=== PATIENT | male | born 1995 | race Caucasian/White ===

== ENCOUNTER 2020-06-21 11:52 | Outpatient (REF) | payer OTHER, SELFPAY ==
[2020-06-21 14:33] LABS: SARS COV2 PCR INHOUSE NEGATIVE (Negative)
== END 2020-06-21 11:53 | disposition home or self-care (01) ==
LOC: HO.LAB 11:52
PROVIDERS: Visit Provider Internal Medicine
DX: Z20.822 Contact with and (suspected) exposure to COVID-19 (principal)
CPT/HCPCS: C9803; U0003

== ENCOUNTER 2022-05-27 10:57 | Emergency (ER) | payer MEDICAID, SELFPAY ==
[2022-05-27 11:18] VITALS: BP 130/78; PULSE 100; RESP 20; TEMP 36.7; O2SAT 100; BMI 22.4
--- NOTE | 2022-05-27 11:19 | ED.EYEPROB ---
HPI - Eye Problem General Chief complaint: Eye Problems <TATA Banda - Last Filed: 05/27/22 11:27> Stated complaint: R eye vision loss <TATA Banda - Last Filed: 05/27/22 11:27> Time Seen by Provider: 05/27/22 12:37 <TATA Banda - Last Filed: 05/27/22 11:27> Source: patient, RN notes reviewed and old records reviewed <Margareth Irving NP - Last Filed: 05/27/22 17:52> Mode of arrival: ambulatory <Margareth Irving NP - Last Filed: 05/27/22 17:52> Limitations: no limitations <Margareth Irving NP - Last Filed: 05/27/22 17:52> History of Present Illness HPI Narrative: This is a 26-year-old male, with no known significant past medical history, who presents to the emergency department with complaints of right eye vision blurriness and photophobia x2 weeks. He states that he woke up with these symptoms 2 weeks ago and admits that his symptoms have been progressively worsening. He denies any eye itchiness, eye pain, discharge, drainage, crusting, or any foreign body into his right eye. His left eye is unaffected. Patient reports over the last year he has had urinary frequency and increased thirst, however denies ever being told that he has diabetes. He states that he has not seen a doctor in ?many years . He reports that he has a cousin has a history of diabetes, however denies any other family medical history of diabetes. <Margareth Irving NP - Last Filed: 05/27/22 17:52> chief complaint: vision change <Margareth Irving NP - Last Filed: 05/27/22 17:52> Onset (ago): week(s) <Margareth Irving NP - Last Filed: 05/27/22 17:52> Onset description: sudden <Margareth Irving NP - Last Filed: 05/27/22 17:52> Duration: progressively worsening <MODE Thomas Last Filed: 05/27/22 17:52> Location: right eye <Margareth Irving NP - Last Filed: 05/27/22 17:52> Eye Symptoms: decreased vision, blurry vision and photophobia <Margareth Irving NP - Last Filed: 05/27/22 17:52> Mechanism: none <Margareth Irving NP - Last Filed: 05/27/22 17:52> Associated symptoms: none <Margareth Irving NP - Last Filed: 05/27/22 17:52> Treatments Prior to Arrival: none <Margareth Irving NP - Last Filed: 05/27/22 17:52> Related Data Home medications: Previous Rx's Medication Instructions Recorded blood sugar diagnostic (FreeStyle #100 ea 05/27/22 Lite Strips) blood-glucose meter (FreeStyle #1 ea 05/27/22 Lite Meter kit) glipizide 5 mg tablet 5 mg PO BID #120 tabs 05/27/22 lancets 28 gauge (FreeStyle #100 ea 05/27/22 Lancets) <TATA Banda - Last Filed: 05/27/22 11:27> Allergies/adverse reactions: Allergies Allergy/AdvReac Type Severity Reaction Status Date / Time No Known Allergies Allergy Verified 05/27/22 11:18 <TATA Banda - Last Filed: 05/27/22 11:27> Review of Systems Review of Systems: Yes all other systems are reviewed and are negative <Margareth Irving NP - Last Filed: 05/27/22 17:52> Constitutional: Constitutional: Reports no additional constitutional complaints, Denies body ache(s), Denies chills, Denies fever(s), Denies headache(s) and Denies weakness <Margareth Irving NP - Last Filed: 05/27/22 17:52> Eyes: Eyes: Reports blurry vision, Reports change in vision, Denies eye discharge, Denies eye pain and Reports photophobia <Margareth Irving NP - Last Filed: 05/27/22 17:52> ENT: Reports system reviewed and no additional complaints, except as documented, Denies dizziness, Denies headache(s), Denies nasal congestion, Denies nasal discharge and Denies neck pain <Margareth Irving VANSTONE MACHINE OPERATOR - Last Filed: 05/27/22 17:52> Cardiovascular: Cardiovascular: Reports no additional cardiovascular complaints, Denies chest pain, Denies leg edema and Denies dyspnea <Margareth Irving VANSTONE MACHINE OPERATOR - Last Filed: 05/27/22 17:52> Respiratory: Respiratory: Reports no additional respiratory complaints, Denies cough and Denies dyspnea <Margareth Irving VANSTONE MACHINE OPERATOR - Last Filed: 05/27/22 17:52> Gastrointestinal: Gastrointestinal: Reports no additional gastrointestinal complaints, Denies abdominal pain, Denies diarrhea, Denies nausea and Denies vomiting <Margareth Irving VANSTONE MACHINE OPERATOR - Last Filed: 05/27/22 17:52> Genitourinary: Genitourinary: Reports as per HPI and Denies urinary incontinence <Margareth Irving VANSTONE MACHINE OPERATOR - Last Filed: 05/27/22 17:52> Musculoskeletal: Musculoskeletal: Reports no additional musculoskeletal complaints, Denies back pain, Denies arthralgias, Denies joint swelling, Denies neck pain, Denies numbness and Denies tingling <Margareth Irving VANSTONE MACHINE OPERATOR - Last Filed: 05/27/22 17:52> Integumentary/Breasts: Skin/Breast: Reports system reviewed and no additional complaints, except as docu and Denies rash <Margareth Irving VANSTONE MACHINE OPERATOR - Last Filed: 05/27/22 17:52> Neurologic: Reports system reviewed and no additional complaints, except as documented, Denies Abnormal speech present, Denies dizziness, Denies headache(s), Denies numbness, Denies tingling and Denies weakness <Margareth Irving VANSTONE MACHINE OPERATOR - Last Filed: 05/27/22 17:52> Endocrine: Endocrine: Reports polydipsia and Reports polyuria <Margareth Irving VANSTONE MACHINE OPERATOR - Last Filed: 05/27/22 17:52> PMFSH Past Medical History Attestation statement: The following information was validated with the patient. <Margareth Irving VANSTONE MACHINE OPERATOR - Last Filed: 05/27/22 17:52> Source: old records reviewed and nursing notes reviewed <Margareth Irving VANSTONE MACHINE OPERATOR - Last Filed: 05/27/22 17:52> Social History Social History: Social History Alcohol intake: never Smoked in Last 30 Days: No Use of substances other than those prescribed or required for medical reasons: No Advance Directives: No Advance Directives Information Provided: No <TATA Banda - Last Filed: 05/27/22 11:27> Physical Exam Vital Signs: Vital Signs: Last Vital Signs Temp 98.4 F 05/27/22 12:49 Pulse 97 05/27/22 12:49 Resp 19 05/27/22 12:49 BP 127/78 05/27/22 12:49 Pulse Ox 99 05/27/22 12:49 O2 Del Method 05/27/22 12:49 BMI result Body Mass Index 22.4 <TATA Banda - Last Filed: 05/27/22 11:27> Vital Signs: Last Vital Signs Temp 98.4 F 05/27/22 12:49 Pulse 97 05/27/22 12:49 Resp 19 05/27/22 12:49 BP 127/78 05/27/22 12:49 Pulse Ox 99 05/27/22 12:49 O2 Del Method 05/27/22 12:49 BMI result Body Mass Index 22.4 <Margareth Irving NP - Last Filed: 05/27/22 17:52> Const: General: cooperative, healthy appearing, comfortable and no acute distress <Margareth Irving NP - Last Filed: 05/27/22 17:52> Orientation/consciousness: patient oriented x3 <Margareth Irving NP - Last Filed: 05/27/22 17:52> Limitations: no limitations <Margareth Irving NP - Last Filed: 05/27/22 17:52> HEENT: Head: Yes normal to inspection <Margareth Irving NP - Last Filed: 05/27/22 17:52> Ears: hearing grossly normal bilaterally <Margareth Irving NP - Last Filed: 05/27/22 17:52> General nose exam: Normal external nose present <Margareth Irving NP - Last Filed: 05/27/22 17:52> Face and sinus: Yes normal facial exam <Margareth Irving VANSTONE MACHINE OPERATOR - Last Filed: 05/27/22 17:52> Mouth: Normal oral and palatal mucosa present <Margareth Irving VANSTONE MACHINE OPERATOR - Last Filed: 05/27/22 17:52> Throat: Yes posterior oropharynx normal <Margareth Irving VANSTONE MACHINE OPERATOR - Last Filed: 05/27/22 17:52> Eyes: Other: Right eye with irregularly circular shaped haziness noted to the cornea, at approximately the 7 o'clock position with some scant fluorescein uptake in the 7 o'clock position, more distal from this region. Intraocular pressure noted to be 20 bilaterally. Visual acuity performed, R eye: unable to perform; Left eye 20/100; Bilateral eyes 20/100 <Margareth Irving VANSTONE MACHINE OPERATOR - Last Filed: 05/27/22 17:52> General: appearance normal, both eyes and all related structures <Margareth Irving VANSTONE MACHINE OPERATOR - Last Filed: 05/27/22 17:52> Visual Dixon: normal visual dixon by confrontation <Margareth Irving VANSTONE MACHINE OPERATOR - Last Filed: 05/27/22 17:52> Alignment and Position: alignment normal <Margareth Irving VANSTONE MACHINE OPERATOR - Last Filed: 05/27/22 17:52> Periorbital: periorbital findings normal <Margareth Irving VANSTONE MACHINE OPERATOR - Last Filed: 05/27/22 17:52> Eyelids: Yes eyelids normal <Margareth Irving VANSTONE MACHINE OPERATOR - Last Filed: 05/27/22 17:52> Conjunctivae: conjunctivae normal <Margareth Irving VANSTONE MACHINE OPERATOR - Last Filed: 05/27/22 17:52> Sclerae: sclerae normal <Margareth Irving VANSTONE MACHINE OPERATOR - Last Filed: 05/27/22 17:52> Pupils: Equal, round and reactive pupils present <Margareth Irving VANSTONE MACHINE OPERATOR - Last Filed: 05/27/22 17:52> EOM: EOMs intact bilaterally <Margareth Irving VANSTONE MACHINE OPERATOR - Last Filed: 05/27/22 17:52> Direct Ophthalmoscopy: normal light reflex and photophobia <Margareth Irving VANSTONE MACHINE OPERATOR - Last Filed: 05/27/22 17:52> Neck: Neck: Yes normal visual inspection <Margareth Irving VANSTONE MACHINE OPERATOR - Last Filed: 05/27/22 17:52> Chest: Chest palpation & inspection: normal inspection of the chest <Margareth Irving VANSTONE MACHINE OPERATOR - Last Filed: 05/27/22 17:52> Resp: Effort & Inspection: normal respiratory effort <Margareth Irving VANSTONE MACHINE OPERATOR - Last Filed: 05/27/22 17:52> Auscultation: clear to auscultation bilaterally <Margareth Irving VANSTONE MACHINE OPERATOR - Last Filed: 05/27/22 17:52> Cardio: Rate: regular rate <Margareth Irving VANSTONE MACHINE OPERATOR - Last Filed: 05/27/22 17:52> Rhythm: regular rhythm <Margareth Irving VANSTONE MACHINE OPERATOR - Last Filed: 05/27/22 17:52> Peripheral pulses: Peripheral pulses 2+ throughout <Margareth Irving VANSTONE MACHINE OPERATOR - Last Filed: 05/27/22 17:52> GI: Inspection: Yes normal to inspection <Margareth Irving VANSTONE MACHINE OPERATOR - Last Filed: 05/27/22 17:52> Palpation (GI): Soft to palpation and nontender <Margareth Irving VANSTONE MACHINE OPERATOR - Last Filed: 05/27/22 17:52> Auscultation: normal bowel sounds <Margareth Irving VANSTONE MACHINE OPERATOR - Last Filed: 05/27/22 17:52> Back/Spine/Pelvis: Thoracic/Lumbar Spine: thoracic and lumbar spine normal to inspection <Margareth Irving VANSTONE MACHINE OPERATOR - Last Filed: 05/27/22 17:52> Skin: General skin exam: no rashes or lesions noted <Margareth Irving VANSTONE MACHINE OPERATOR - Last Filed: 05/27/22 17:52> Neuro: General: patient oriented x3, no focal motor deficits and normal sensation to monofilament <Margareth Irving VANSTONE MACHINE OPERATOR - Last Filed: 05/27/22 17:52> Cranial nerves: Yes Equal, round and reactive pupils present <Margareth Irving VANSTONE MACHINE OPERATOR - Last Filed: 05/27/22 17:52> Cognition (Neuro): normal cognition <Margareth Irving NP - Last Filed: 05/27/22 17:52> Speech: No Abnormal speech present <Margareth Irving NP - Last Filed: 05/27/22 17:52> Gait exam (Neuro): Normal gait present <Margareth Irving NP - Last Filed: 05/27/22 17:52> Motor exam (neuro): 5/5 motor strength present throughout <Margareth Irving NP - Last Filed: 05/27/22 17:52> Extrem: General: Yes normal to inspection <Margareth Irving NP - Last Filed: 05/27/22 17:52> Course Course Course Narrative: RME - 26 yo male with no known medical problems presents to the ER for evaluation of progressive right sided vision changes over the last 1 week. Reports it was intermittent at 1st and how he has constant cloudy vision in the left eye. No associated eye pain, FB sensation, drainage, trauma. He reports polydipsia and polyuria x1 year. Right eye is cloudy, most over the pupil, PERRL. Plan: visual acuity, full eye exam in the ER. POC in triage reading HIGH labs and A1c ordered <TATA Banda - Last Filed: 05/27/22 11:27> RME - 26 yo male with no known medical problems presents to the ER for evaluation of progressive right sided vision changes over the last 2 weeks. Reports it was intermittent at 1st and how he has constant cloudy vision in the left eye. No associated eye pain, FB sensation, drainage, trauma. He reports polydipsia and polyuria x1 year. Right eye is cloudy, most over the pupil, PERRL. Plan: visual acuity, full eye exam in the ER. POC in triage reading HIGH labs and A1c ordered <Margareth Irving NP - Last Filed: 05/27/22 17:52> Reevaluation(s) Reevaluation #1: 1430-BS 525. No evidence of DKA. Will repeat L of IV fluids and insulin dose. Patient does not have primary care doctor. This is a new diagnosis of diabetes. Anticipate admission further management <Margareth Irving NP - Last Filed: 05/27/22 17:52> Reevaluation #2: 0860-blood sugar 328. Patient new diabetic. Patient will need diabetic teaching and follow-up outpatient. Will admit to medicine service for further evaluation <Margareth Irving NP - Last Filed: 05/27/22 17:52> Medications Administered Discontinued Medications Generic Name Dose Route Start Last Admin Trade Name Freq PRN Reason Stop Dose Admin Fluorescein Sodium 1 strip 05/27/22 12:45 05/27/22 13:31 Fluorescein Sodium Strip EYE-RIGHT 05/27/22 12:46 1 strip ONCE ONE Administration Sodium Chloride 1,000 mls @ 999 mls/hr 05/27/22 11:30 05/27/22 13:32 Ns IVCONT 05/27/22 12:30 Infused .Q1H1M CHRISTIN Infusion Sodium Chloride 1,000 mls @ 999 mls/hr 05/27/22 14:35 05/27/22 16:05 Ns IV 05/27/22 15:35 Infused .Q1H1M STA Infusion Insulin Human Regular 6 unit 05/27/22 12:57 05/27/22 13:30 Insulin Regular, Human 100 Unit/Ml 3 Ml Vial 0.1 unit/kg (6 unit) 05/27/22 12:58 6 unit IVPUSH Administration ONCE ONE Insulin Human Regular 6 unit 05/27/22 14:35 05/27/22 14:55 Insulin Regular, Human 100 Unit/Ml 3 Ml Vial 0.1 unit/kg (6 unit) 05/27/22 14:36 6 unit IVPUSH Administration ONCE ONE Tetracaine HCl 1 drop 05/27/22 12:45 05/27/22 13:32 Tetracaine Hcl/Pf 0.5% Oph Kalyani 4 Ml Drops EYE-RIGHT 05/27/22 12:46 1 drop ONCE ONE Administration <TATA Banda - Last Filed: 05/27/22 11:27> Medications Administered Discontinued Medications Generic Name Dose Route Start Last Admin Trade Name Freq PRN Reason Stop Dose Admin Fluorescein Sodium 1 strip 05/27/22 12:45 05/27/22 13:31 Fluorescein Sodium Strip EYE-RIGHT 05/27/22 12:46 1 strip ONCE ONE Administration Sodium Chloride 1,000 mls @ 999 mls/hr 05/27/22 11:30 05/27/22 13:32 Ns IVCONT 05/27/22 12:30 Infused .Q1H1M CHRISTIN Infusion Sodium Chloride 1,000 mls @ 999 mls/hr 05/27/22 14:35 05/27/22 16:05 Ns IV 05/27/22 15:35 Infused .Q1H1M STA Infusion Insulin Human Regular 6 unit 05/27/22 12:57 05/27/22 13:30 Insulin Regular, Human 100 Unit/Ml 3 Ml Vial 0.1 unit/kg (6 unit) 05/27/22 12:58 6 unit IVPUSH Administration ONCE ONE Insulin Human Regular 6 unit 05/27/22 14:35 05/27/22 14:55 Insulin Regular, Human 100 Unit/Ml 3 Ml Vial 0.1 unit/kg (6 unit) 05/27/22 14:36 6 unit IVPUSH Administration ONCE ONE Tetracaine HCl 1 drop 05/27/22 12:45 05/27/22 13:32 Tetracaine Hcl/Pf 0.5% Oph Kalyani 4 Ml Drops EYE-RIGHT 05/27/22 12:46 1 drop ONCE ONE Administration <Margareth Irving NP - Last Filed: 05/27/22 17:52> Medical Decision Making Medical Decision Making MDM Narrative: 26 yo male with no known medical problems presents to the ER for evaluation of progressive right sided vision changes over the last 2 weeks as well as polydipsia and polyurea x 1 year. POC > 600; Exam and lab findings consistent with new diagnosis of diabetes. Eye examination shows no examination of corneal abrasions/lacerations/ulcerations, intraoccular pressures within normal limits at 20; examination findings concerning for diabetic retinopathy secondary to uncontrolled hyperglycemia x 1 year. Patient is hemodynamically stable. Labs, COVID-19 swabs, UA ordered for further evaluation. No evidence of DKA at this time. Will treat patient with 6 units of insulin and IV fluids. <Margareth Irving NP - Last Filed: 05/27/22 17:52> Differential Diagnosis Differential Diagnoses: The differential diagnosis associated with the presentation includes <Margareth Ivring NP - Last Filed: 05/27/22 17:52> DKA, diabetic retinopathy, hyperglycemia, Less likely retinal detachment, corneal ulcer, corneal abrasion, acute glaucoma, retinal artery/vein occlusion <Margareth Irving NP - Last Filed: 05/27/22 17:52> Admission/Observation Consideration of admission/observation: Escalation of care including admission/observation considered <Margareth Irving NP - Last Filed: 05/27/22 17:52> Consult Healthcare Provider Management of the patient was discussed with: Hospitalist <Margareth Irving NP - Last Filed: 05/27/22 17:52> Spoke to Dr Urias who came down to see the patient. Does not feel admission is warranted. We discussed outpatient management and plan for patient to be started on glipizide 5mg BID. Will be given rx for glucometer. Patient reports his girlfriend is a [employer] and knows how to check blood sugars. He also has multiple family members who can help him with this as well. We discussed diabetic diet at home. He was also seen by case management provided with a primary care list who he will need to follow-up with. Will need f/u with opto outpatient as well. <Margareth Irving NP - Last Filed: 05/27/22 17:52> Lab Data MDM Lab Attestation statement: I reviewed the patient's lab results. <Margareth Irving NP - Last Filed: 05/27/22 17:52> Result Diagrams: 05/27/22 11:39 05/27/22 11:39 <TATA Banda - Last Filed: 05/27/22 11:27> Labs: Lab Results 05/27/22 05/27/22 05/27/22 Range/Units 11:23 11:27 11:39 WBC 7.9 (4.8-10.8) X10*3/uL RBC 5.16 (4.60-5.80) X10*6/uL Hgb 14.8 (14.0-18.0) g/dl Hct 44.1 (42.0-52.0) % MCV 85.5 (80.0-98.0) fL MCH 28.7 (27.0-33.0) pg MCHC 33.6 (31.0-36.0) g/dl RDW 12.6 (11.0-16.0) % Plt Count 250 (160-400) X10*3/uL MPV 10.7 (9.4-12.4) fL Immature Gran % (Auto) 0.6 H (0.0-0.4) % Neut % (Auto) 62.0 (45-73) % Lymph % (Auto) 25.7 (20-40) % [place] % (Auto) 8.7 (2-11) % Eos % (Auto) 2.4 (0-4) % Baso % (Auto) 0.6 (0-2) % Lymph # (Auto) 2.0 (1.2-4.9) X10*3/uL [place] # (Auto) 0.7 (0.1-1.2) X10*3/uL Eos # (Auto) 0.2 (0.0-0.4) X10*3/uL Baso # (Auto) 0.1 (0.0-0.2) X10*3/uL Abs Immat Gran (auto) 0.05 H (0.00-0.03) X10*3/uL Absolute Neuts (auto) 4.9 (2.0-8.3) x10*3/uL Absolute Nucleated RBC 0.000 (0.0-0.012) X10*3/uL Nucleated RBC % (auto) 0.0 (0.0-0.2) /100WBC VBG pH (7.32-7.43) VBG pCO2 mmHg VBG pO2 mmHg VBG HCO3 (22-26) mmol/L VBG O2 Saturation % VBG Base Excess mmol/L Sodium (135-145) mmol/L Potassium (3.3-5.1) mmol/L Chloride (96-108) mmol/L Carbon Dioxide (22-29) mmol/L Anion Gap (12-20) BUN (9-16) mg/dL Creatinine (0.5-1.4) mg/dL Estim Creat Clear Calc Estimated GFR POC Glucose > 600 H* > 600 H* (60-115) mg/dL Random Glucose (60-115) mg/dL Estimat Average Glucose Hemoglobin A1c % % Calcium (8.4-10.2) mg/dL Magnesium (1.6-2.6) mg/dL Total Bilirubin (0.0-1.0) mg/dL Direct Bilirubin (0.0-0.5) mg/dL AST (5-37) U/L ALT (0-40) U/L Alkaline Phosphatase (39-117) U/L Total Protein (6.5-8.0) g/dL Albumin (3.5-5.0) g/dL Urine Color Urine Appearance Urine pH (5.0-9.0) Ur Specific [place] (1.005-1.025) Urine Protein (Neg-Trace) mg/dL Urine Glucose (UA) (Negative) mg/dL Urine Ketones (Negative) mg/dL Urine Blood (Negative) Urine Nitrite (Negative) Ur Leukocyte Esterase (Negative) Urine RBC (0-2) /HPF Urine WBC (0-5) /HPF Ur Squamous Epith Cells (0-2) /HPF Urine Bacteria (None Seen) Hyaline Casts (0-2) /LPF Acetone, Qual (Negative) COVID-19 (LIDA) (Negative) COVID-19 Clin Com 05/27/22 05/27/22 05/27/22 Range/Units 11:39 11:39 11:39 WBC (4.8-10.8) X10*3/uL RBC (4.60-5.80) X10*6/uL Hgb (14.0-18.0) g/dl Hct (42.0-52.0) % MCV (80.0-98.0) fL MCH (27.0-33.0) pg MCHC (31.0-36.0) g/dl RDW (11.0-16.0) % Plt Count (160-400) X10*3/uL MPV (9.4-12.4) fL Immature Gran % (Auto) (0.0-0.4) % Neut % (Auto) (45-73) % Lymph % (Auto) (20-40) % [place] % (Auto) (2-11) % Eos % (Auto) (0-4) % Baso % (Auto) (0-2) % Lymph # (Auto) (1.2-4.9) X10*3/uL [place] # (Auto) (0.1-1.2) X10*3/uL Eos # (Auto) (0.0-0.4) X10*3/uL Baso # (Auto) (0.0-0.2) X10*3/uL Abs Immat Gran (auto) (0.00-0.03) X10*3/uL Absolute Neuts (auto) (2.0-8.3) x10*3/uL Absolute Nucleated RBC (0.0-0.012) X10*3/uL Nucleated RBC % (auto) (0.0-0.2) /100WBC VBG pH (7.32-7.43) VBG pCO2 mmHg VBG pO2 mmHg VBG HCO3 (22-26) mmol/L VBG O2 Saturation % VBG Base Excess mmol/L Sodium 129 L (135-145) mmol/L Potassium 4.9 (3.3-5.1) mmol/L Chloride 89 L (96-108) mmol/L Carbon Dioxide 28 (22-29) mmol/L Anion Gap 17 (12-20) BUN 11 (9-16) mg/dL Creatinine 1.31 (0.5-1.4) mg/dL Estim Creat Clear Calc 73.3 Estimated GFR > 60 POC Glucose (60-115) mg/dL Random Glucose 750 H* (60-115) mg/dL Estimat Average Glucose TNP Hemoglobin A1c % > 14.0 % Calcium 9.7 (8.4-10.2) mg/dL Magnesium 1.7 (1.6-2.6) mg/dL Total Bilirubin 1.0 (0.0-1.0) mg/dL Direct Bilirubin 0.3 (0.0-0.5) mg/dL AST 16 (5-37) U/L ALT 19 (0-40) U/L Alkaline Phosphatase 92 (39-117) U/L Total Protein 7.5 (6.5-8.0) g/dL Albumin 4.4 (3.5-5.0) g/dL Urine Color Urine Appearance Urine pH (5.0-9.0) Ur Specific [place] (1.005-1.025) Urine Protein (Neg-Trace) mg/dL Urine Glucose (UA) (Negative) mg/dL Urine Ketones (Negative) mg/dL Urine Blood (Negative) Urine Nitrite (Negative) Ur Leukocyte Esterase (Negative) Urine RBC (0-2) /HPF Urine WBC (0-5) /HPF Ur Squamous Epith Cells (0-2) /HPF Urine Bacteria (None Seen) Hyaline Casts (0-2) /LPF Acetone, Qual (Negative) COVID-19 (LIDA) Negative (Negative) COVID-19 Clin Com See Note 05/27/22 05/27/22 05/27/22 Range/Units 11:39 11:44 13:37 WBC (4.8-10.8) X10*3/uL RBC (4.60-5.80) X10*6/uL Hgb (14.0-18.0) g/dl Hct (42.0-52.0) % MCV (80.0-98.0) fL MCH (27.0-33.0) pg MCHC (31.0-36.0) g/dl RDW (11.0-16.0) % Plt Count (160-400) X10*3/uL MPV (9.4-12.4) fL Immature Gran % (Auto) (0.0-0.4) % Neut % (Auto) (45-73) % Lymph % (Auto) (20-40) % [place] % (Auto) (2-11) % Eos % (Auto) (0-4) % Baso % (Auto) (0-2) % Lymph # (Auto) (1.2-4.9) X10*3/uL [place] # (Auto) (0.1-1.2) X10*3/uL Eos # (Auto) (0.0-0.4) X10*3/uL Baso # (Auto) (0.0-0.2) X10*3/uL Abs Immat Gran (auto) (0.00-0.03) X10*3/uL Absolute Neuts (auto) (2.0-8.3) x10*3/uL Absolute Nucleated RBC (0.0-0.012) X10*3/uL Nucleated RBC % (auto) (0.0-0.2) /100WBC VBG pH 7.36 (7.32-7.43) VBG pCO2 43 mmHg VBG pO2 39 mmHg VBG HCO3 25 (22-26) mmol/L VBG O2 Saturation 61.0 % VBG Base Excess -0.5 mmol/L Sodium (135-145) mmol/L Potassium (3.3-5.1) mmol/L Chloride (96-108) mmol/L Carbon Dioxide (22-29) mmol/L Anion Gap (12-20) BUN (9-16) mg/dL Creatinine (0.5-1.4) mg/dL Estim Creat Clear Calc Estimated GFR POC Glucose (60-115) mg/dL Random Glucose (60-115) mg/dL Estimat Average Glucose Hemoglobin A1c % % Calcium (8.4-10.2) mg/dL Magnesium (1.6-2.6) mg/dL Total Bilirubin (0.0-1.0) mg/dL Direct Bilirubin (0.0-0.5) mg/dL AST (5-37) U/L ALT (0-40) U/L Alkaline Phosphatase (39-117) U/L Total Protein (6.5-8.0) g/dL Albumin (3.5-5.0) g/dL Urine Color Yellow Urine Appearance Clear Urine pH 6.5 (5.0-9.0) Ur Specific [place] >= 1.030 H (1.005-1.025) Urine Protein Negative (Neg-Trace) mg/dL Urine Glucose (UA) >=1000 H (Negative) mg/dL Urine Ketones Negative (Negative) mg/dL Urine Blood Negative (Negative) Urine Nitrite Negative (Negative) Ur Leukocyte Esterase Negative (Negative) Urine RBC 0-2 (0-2) /HPF Urine WBC 0-5 (0-5) /HPF Ur Squamous Epith Cells 0-2 (0-2) /HPF Urine Bacteria None Seen (None Seen) Hyaline Casts 0-2 (0-2) /LPF Acetone, Qual Negative (Negative) COVID-19 (LIDA) (Negative) COVID-19 Clin Com 05/27/22 05/27/22 05/27/22 Range/Units 14:31 16:17 17:32 WBC (4.8-10.8) X10*3/uL RBC (4.60-5.80) X10*6/uL Hgb (14.0-18.0) g/dl Hct (42.0-52.0) % MCV (80.0-98.0) fL MCH (27.0-33.0) pg MCHC (31.0-36.0) g/dl RDW (11.0-16.0) % Plt Count (160-400) X10*3/uL MPV (9.4-12.4) fL Immature Gran % (Auto) (0.0-0.4) % Neut % (Auto) (45-73) % Lymph % (Auto) (20-40) % [place] % (Auto) (2-11) % Eos % (Auto) (0-4) % Baso % (Auto) (0-2) % Lymph # (Auto) (1.2-4.9) X10*3/uL [place] # (Auto) (0.1-1.2) X10*3/uL Eos # (Auto) (0.0-0.4) X10*3/uL Baso # (Auto) (0.0-0.2) X10*3/uL Abs Immat Gran (auto) (0.00-0.03) X10*3/uL Absolute Neuts (auto) (2.0-8.3) x10*3/uL Absolute Nucleated RBC (0.0-0.012) X10*3/uL Nucleated RBC % (auto) (0.0-0.2) /100WBC VBG pH (7.32-7.43) VBG pCO2 mmHg VBG pO2 mmHg VBG HCO3 (22-26) mmol/L VBG O2 Saturation % VBG Base Excess mmol/L Sodium (135-145) mmol/L Potassium (3.3-5.1) mmol/L Chloride (96-108) mmol/L Carbon Dioxide (22-29) mmol/L Anion Gap (12-20) BUN (9-16) mg/dL Creatinine (0.5-1.4) mg/dL Estim Creat Clear Calc Estimated GFR POC Glucose 522 H* 328 H 321 H (60-115) mg/dL Random Glucose (60-115) mg/dL Estimat Average Glucose Hemoglobin A1c % % Calcium (8.4-10.2) mg/dL Magnesium (1.6-2.6) mg/dL Total Bilirubin (0.0-1.0) mg/dL Direct Bilirubin (0.0-0.5) mg/dL AST (5-37) U/L ALT (0-40) U/L Alkaline Phosphatase (39-117) U/L Total Protein (6.5-8.0) g/dL Albumin (3.5-5.0) g/dL Urine Color Urine Appearance Urine pH (5.0-9.0) Ur Specific [place] (1.005-1.025) Urine Protein (Neg-Trace) mg/dL Urine Glucose (UA) (Negative) mg/dL Urine Ketones (Negative) mg/dL Urine Blood (Negative) Urine Nitrite (Negative) Ur Leukocyte Esterase (Negative) Urine RBC (0-2) /HPF Urine WBC (0-5) /HPF Ur Squamous Epith Cells (0-2) /HPF Urine Bacteria (None Seen) Hyaline Casts (0-2) /LPF Acetone, Qual (Negative) COVID-19 (LIDA) (Negative) COVID-19 Clin Com <TATA Banda - Last Filed: 05/27/22 11:27> Lab Results 05/27/22 05/27/22 05/27/22 Range/Units 11:23 11:27 11:39 WBC 7.9 (4.8-10.8) X10*3/uL RBC 5.16 (4.60-5.80) X10*6/uL Hgb 14.8 (14.0-18.0) g/dl Hct 44.1 (42.0-52.0) % MCV 85.5 (80.0-98.0) fL MCH 28.7 (27.0-33.0) pg MCHC 33.6 (31.0-36.0) g/dl RDW 12.6 (11.0-16.0) % Plt Count 250 (160-400) X10*3/uL MPV 10.7 (9.4-12.4) fL Immature Gran % (Auto) 0.6 H (0.0-0.4) % Neut % (Auto) 62.0 (45-73) % Lymph % (Auto) 25.7 (20-40) % [place] % (Auto) 8.7 (2-11) % Eos % (Auto) 2.4 (0-4) % Baso % (Auto) 0.6 (0-2) % Lymph # (Auto) 2.0 (1.2-4.9) X10*3/uL [place] # (Auto) 0.7 (0.1-1.2) X10*3/uL Eos # (Auto) 0.2 (0.0-0.4) X10*3/uL Baso # (Auto) 0.1 (0.0-0.2) X10*3/uL Abs Immat Gran (auto) 0.05 H (0.00-0.03) X10*3/uL Absolute Neuts (auto) 4.9 (2.0-8.3) x10*3/uL Absolute Nucleated RBC 0.000 (0.0-0.012) X10*3/uL Nucleated RBC % (auto) 0.0 (0.0-0.2) /100WBC VBG pH (7.32-7.43) VBG pCO2 mmHg VBG pO2 mmHg VBG HCO3 (22-26) mmol/L VBG O2 Saturation % VBG Base Excess mmol/L Sodium (135-145) mmol/L Potassium (3.3-5.1) mmol/L Chloride (96-108) mmol/L Carbon Dioxide (22-29) mmol/L Anion Gap (12-20) BUN (9-16) mg/dL Creatinine (0.5-1.4) mg/dL Estim Creat Clear Calc Estimated GFR POC Glucose > 600 H* > 600 H* (60-115) mg/dL Random Glucose (60-115) mg/dL Estimat Average Glucose Hemoglobin A1c % % Calcium (8.4-10.2) mg/dL Magnesium (1.6-2.6) mg/dL Total Bilirubin (0.0-1.0) mg/dL Direct Bilirubin (0.0-0.5) mg/dL AST (5-37) U/L ALT (0-40) U/L Alkaline Phosphatase (39-117) U/L Total Protein (6.5-8.0) g/dL Albumin (3.5-5.0) g/dL Urine Color Urine Appearance Urine pH (5.0-9.0) Ur Specific [place] (1.005-1.025) Urine Protein (Neg-Trace) mg/dL Urine Glucose (UA) (Negative) mg/dL Urine Ketones (Negative) mg/dL Urine Blood (Negative) Urine Nitrite (Negative) Ur Leukocyte Esterase (Negative) Urine RBC (0-2) /HPF Urine WBC (0-5) /HPF Ur Squamous Epith Cells (0-2) /HPF Urine Bacteria (None Seen) Hyaline Casts (0-2) /LPF Acetone, Qual (Negative) COVID-19 (LIDA) (Negative) COVID-19 Clin Com 05/27/22 05/27/22 05/27/22 Range/Units 11:39 11:39 11:39 WBC (4.8-10.8) X10*3/uL RBC (4.60-5.80) X10*6/uL Hgb (14.0-18.0) g/dl Hct (42.0-52.0) % MCV (80.0-98.0) fL MCH (27.0-33.0) pg MCHC (31.0-36.0) g/dl RDW (11.0-16.0) % Plt Count (160-400) X10*3/uL MPV (9.4-12.4) fL Immature Gran % (Auto) (0.0-0.4) % Neut % (Auto) (45-73) % Lymph % (Auto) (20-40) % [place] % (Auto) (2-11) % Eos % (Auto) (0-4) % Baso % (Auto) (0-2) % Lymph # (Auto) (1.2-4.9) X10*3/uL [place] # (Auto) (0.1-1.2) X10*3/uL Eos # (Auto) (0.0-0.4) X10*3/uL Baso # (Auto) (0.0-0.2) X10*3/uL Abs Immat Gran (auto) (0.00-0.03) X10*3/uL Absolute Neuts (auto) (2.0-8.3) x10*3/uL Absolute Nucleated RBC (0.0-0.012) X10*3/uL Nucleated RBC % (auto) (0.0-0.2) /100WBC VBG pH (7.32-7.43) VBG pCO2 mmHg VBG pO2 mmHg VBG HCO3 (22-26) mmol/L VBG O2 Saturation % VBG Base Excess mmol/L Sodium 129 L (135-145) mmol/L Potassium 4.9 (3.3-5.1) mmol/L Chloride 89 L (96-108) mmol/L Carbon Dioxide 28 (22-29) mmol/L Anion Gap 17 (12-20) BUN 11 (9-16) mg/dL Creatinine 1.31 (0.5-1.4) mg/dL Estim Creat Clear Calc 73.3 Estimated GFR > 60 POC Glucose (60-115) mg/dL Random Glucose 750 H* (60-115) mg/dL Estimat Average Glucose TNP Hemoglobin A1c % > 14.0 % Calcium 9.7 (8.4-10.2) mg/dL Magnesium 1.7 (1.6-2.6) mg/dL Total Bilirubin 1.0 (0.0-1.0) mg/dL Direct Bilirubin 0.3 (0.0-0.5) mg/dL AST 16 (5-37) U/L ALT 19 (0-40) U/L Alkaline Phosphatase 92 (39-117) U/L Total Protein 7.5 (6.5-8.0) g/dL Albumin 4.4 (3.5-5.0) g/dL Urine Color Urine Appearance Urine pH (5.0-9.0) Ur Specific [place] (1.005-1.025) Urine Protein (Neg-Trace) mg/dL Urine Glucose (UA) (Negative) mg/dL Urine Ketones (Negative) mg/dL Urine Blood (Negative) Urine Nitrite (Negative) Ur Leukocyte Esterase (Negative) Urine RBC (0-2) /HPF Urine WBC (0-5) /HPF Ur Squamous Epith Cells (0-2) /HPF Urine Bacteria (None Seen) Hyaline Casts (0-2) /LPF Acetone, Qual (Negative) COVID-19 (LIDA) Negative (Negative) COVID-19 Clin Com See Note 05/27/22 05/27/22 05/27/22 Range/Units 11:39 11:44 13:37 WBC (4.8-10.8) X10*3/uL RBC (4.60-5.80) X10*6/uL Hgb (14.0-18.0) g/dl Hct (42.0-52.0) % MCV (80.0-98.0) fL MCH (27.0-33.0) pg MCHC (31.0-36.0) g/dl RDW (11.0-16.0) % Plt Count (160-400) X10*3/uL MPV (9.4-12.4) fL Immature Gran % (Auto) (0.0-0.4) % Neut % (Auto) (45-73) % Lymph % (Auto) (20-40) % [place] % (Auto) (2-11) % Eos % (Auto) (0-4) % Baso % (Auto) (0-2) % Lymph # (Auto) (1.2-4.9) X10*3/uL [place] # (Auto) (0.1-1.2) X10*3/uL Eos # (Auto) (0.0-0.4) X10*3/uL Baso # (Auto) (0.0-0.2) X10*3/uL Abs Immat Gran (auto) (0.00-0.03) X10*3/uL Absolute Neuts (auto) (2.0-8.3) x10*3/uL Absolute Nucleated RBC (0.0-0.012) X10*3/uL Nucleated RBC % (auto) (0.0-0.2) /100WBC VBG pH 7.36 (7.32-7.43) VBG pCO2 43 mmHg VBG pO2 39 mmHg VBG HCO3 25 (22-26) mmol/L VBG O2 Saturation 61.0 % VBG Base Excess -0.5 mmol/L Sodium (135-145) mmol/L Potassium (3.3-5.1) mmol/L Chloride (96-108) mmol/L Carbon Dioxide (22-29) mmol/L Anion Gap (12-20) BUN (9-16) mg/dL Creatinine (0.5-1.4) mg/dL Estim Creat Clear Calc Estimated GFR POC Glucose (60-115) mg/dL Random Glucose (60-115) mg/dL Estimat Average Glucose Hemoglobin A1c % % Calcium (8.4-10.2) mg/dL Magnesium (1.6-2.6) mg/dL Total Bilirubin (0.0-1.0) mg/dL Direct Bilirubin (0.0-0.5) mg/dL AST (5-37) U/L ALT (0-40) U/L Alkaline Phosphatase (39-117) U/L Total Protein (6.5-8.0) g/dL Albumin (3.5-5.0) g/dL Urine Color Yellow Urine Appearance Clear Urine pH 6.5 (5.0-9.0) Ur Specific [place] >= 1.030 H (1.005-1.025) Urine Protein Negative (Neg-Trace) mg/dL Urine Glucose (UA) >=1000 H (Negative) mg/dL Urine Ketones Negative (Negative) mg/dL Urine Blood Negative (Negative) Urine Nitrite Negative (Negative) Ur Leukocyte Esterase Negative (Negative) Urine RBC 0-2 (0-2) /HPF Urine WBC 0-5 (0-5) /HPF Ur Squamous Epith Cells 0-2 (0-2) /HPF Urine Bacteria None Seen (None Seen) Hyaline Casts 0-2 (0-2) /LPF Acetone, Qual Negative (Negative) COVID-19 (LIDA) (Negative) COVID-19 Clin Com 05/27/22 05/27/22 05/27/22 Range/Units 14:31 16:17 17:32 WBC (4.8-10.8) X10*3/uL RBC (4.60-5.80) X10*6/uL Hgb (14.0-18.0) g/dl Hct (42.0-52.0) % MCV (80.0-98.0) fL MCH (27.0-33.0) pg MCHC (31.0-36.0) g/dl RDW (11.0-16.0) % Plt Count (160-400) X10*3/uL MPV (9.4-12.4) fL Immature Gran % (Auto) (0.0-0.4) % Neut % (Auto) (45-73) % Lymph % (Auto) (20-40) % [place] % (Auto) (2-11) % Eos % (Auto) (0-4) % Baso % (Auto) (0-2) % Lymph # (Auto) (1.2-4.9) X10*3/uL [place] # (Auto) (0.1-1.2) X10*3/uL Eos # (Auto) (0.0-0.4) X10*3/uL Baso # (Auto) (0.0-0.2) X10*3/uL Abs Immat Gran (auto) (0.00-0.03) X10*3/uL Absolute Neuts (auto) (2.0-8.3) x10*3/uL Absolute Nucleated RBC (0.0-0.012) X10*3/uL Nucleated RBC % (auto) (0.0-0.2) /100WBC VBG pH (7.32-7.43) VBG pCO2 mmHg VBG pO2 mmHg VBG HCO3 (22-26) mmol/L VBG O2 Saturation % VBG Base Excess mmol/L Sodium (135-145) mmol/L Potassium (3.3-5.1) mmol/L Chloride (96-108) mmol/L Carbon Dioxide (22-29) mmol/L Anion Gap (12-20) BUN (9-16) mg/dL Creatinine (0.5-1.4) mg/dL Estim Creat Clear Calc Estimated GFR POC Glucose 522 H* 328 H 321 H (60-115) mg/dL Random Glucose (60-115) mg/dL Estimat Average Glucose Hemoglobin A1c % % Calcium (8.4-10.2) mg/dL Magnesium (1.6-2.6) mg/dL Total Bilirubin (0.0-1.0) mg/dL Direct Bilirubin (0.0-0.5) mg/dL AST (5-37) U/L ALT (0-40) U/L Alkaline Phosphatase (39-117) U/L Total Protein (6.5-8.0) g/dL Albumin (3.5-5.0) g/dL Urine Color Urine Appearance Urine pH (5.0-9.0) Ur Specific [place] (1.005-1.025) Urine Protein (Neg-Trace) mg/dL Urine Glucose (UA) (Negative) mg/dL Urine Ketones (Negative) mg/dL Urine Blood (Negative) Urine Nitrite (Negative) Ur Leukocyte Esterase (Negative) Urine RBC (0-2) /HPF Urine WBC (0-5) /HPF Ur Squamous Epith Cells (0-2) /HPF Urine Bacteria (None Seen) Hyaline Casts (0-2) /LPF Acetone, Qual (Negative) COVID-19 (LIDA) (Negative) COVID-19 Clin Com <Margareth Irving NP - Last Filed: 05/27/22 17:52> Independent Historian Clinical information obtained from an independent historian. History obtained from or confirmed by: Spouse <Margareth Irving NP - Last Filed: 05/27/22 17:52> Chronic Conditions Patient?s care impacted by: Diabetes <Margareth Irving NP - Last Filed: 05/27/22 17:52> Social Determinants Patient?s care significantly limited by Social Determinants of Health including: Problems related to primary support group <Margareth Irving NP - Last Filed: 05/27/22 17:52> Procedures Procedure Narrative Procedure Narrative: Two drops of tetracaine instilled in right eye, fluoresceine stain achieved. Right eye with irregularly circular shaped haziness noted to the cornea, at approximately the 7 o'clock position with some scant fluorescein uptake in the 7 o'clock position, more distal from this region. Intraocular pressure is 20. Two drops of tetracaine instilled in left eye, intraocular pressure is 20. <Margareth Irving NP - Last Filed: 05/27/22 17:52> Critical Care Time Critical Care Time Critical Care Time: Yes <Margareth Irving NP - Last Filed: 05/27/22 17:52> Total Critical Care Time: 60 <Margareth Irving NP - Last Filed: 05/27/22 17:52> Attestation: Multiple re-evaluations for blood sugar, discussion with medicine team, discussion with patient and family at the bedside. <Margareth Irving NP - Last Filed: 05/27/22 17:52> Discharge Plan Discharge Clinical Impression: Diabetes mellitus with hyperglycemia, Alteration in vision <TATA Banda - Last Filed: 05/27/22 11:27> Patient Disposition: Home, Self-Care <TATA Banda - Last Filed: 05/27/22 11:27> Instructions: Type 2 Diabetes in Adults: New Diagnosis (ED), Diabetic Hyperglycemia (ED), What to Do if Your Blood Sugar is Low (ED), How to Check your Blood Sugar (ED) <TATA Banda - Last Filed: 05/27/22 11:27> Additional Instructions: Your blood sugar improved with insulin and iv fluids. Start taking your diabetic medications tomorrow morning. Make sure you are eating small, frequent meals throughout the day. Check your blood glucose once daily. Please keep track of these numbers. We are giving you a 2 month supply of your diabetic medications. Please return for any issues. You need to establish a PCP. You were provided with information by our binder caser to do this. You have visual loss in your right eye which is directly related to your blood sugars. You will need to have eye screenings and additional exam done by an opthamologist. <TATA Banda - Last Filed: 05/27/22 11:27> Prescriptions: New glipizide 5 mg tablet 5 mg PO BID Qty: 120 0RF (DME) blood-glucose meter [FreeStyle Lite Meter] Kit See Rx Instructions .Route Qty: 1 0RF Rx Instructions: As directed (DME) FreeStyle Lite Strips Strip See Rx Instructions .Route Qty: 100 0RF Rx Instructions: As directed (DME) lancets [FreeStyle Lancets] 28 gauge misc See Rx Instructions .Route Qty: 100 0RF Rx Instructions: As directed <TATA Banda - Last Filed: 05/27/22 11:27> Referrals: [facility] [Provider Group] - 10 days Juan R Mann [Physician] - 2 weeks Physician,None [Primary Care Provider] - <TATA Banda - Last Filed: 05/27/22 11:27> Interventions: ED Discharge Assessment Last Done: 05/27/22 17:51 <TATA Banda - Last Filed: 05/27/22 11:27>
[2022-05-27 11:30] LABS: Glucose, Whole Blood > 600 mg/dL (60-115)
[2022-05-27 11:30] LABS: Glucose, Whole Blood > 600 mg/dL (60-115)
--- NOTE | 2022-05-27 11:32 | PC.NURSE ---
patient POC checked in triage. read HI, QC check complete. rechecked POC continues to read HI. auditor in charge made aware. patient having lab work drawn at this time.
[2022-05-27 11:47] LABS: MANUAL DIFF FLAG NO
[2022-05-27 11:50] LABS: VBG Base Excess -0.5 mmol/L; VBG HCO3 25 mmol/L (22-26); VBG pCO2 43 mmHg; VBG pH 7.36 (7.32-7.43); VBG pO2 39 mmHg
[2022-05-27 11:53] LABS: Venous Blood Gas Refer to POC result
[2022-05-27 11:55] LABS: Basophils Absolute Auto 0.1 X10*3/uL (0.0-0.2); Basophils Percent Auto 0.6 % (0-2); Eosinophils Absolute Auto 0.2 X10*3/uL (0.0-0.4); Eosinophils Percent Auto 2.4 % (0-4); Hematocrit 44.1 % (42.0-52.0); Hemoglobin 14.8 g/dl (14.0-18.0); Imm Gran Abs Auto 0.05 X10*3/uL (0.00-0.03); Imm Gran Pct Auto 0.6 % (0.0-0.4); Lymphocytes Percent Auto 25.7 % (20-40); Mean Corpuscular HGB Conc 33.6 g/dl (31.0-36.0); Mean Corpuscular Hemoglobin 28.7 pg (27.0-33.0); Mean Corpuscular Volume 85.5 fL (80.0-98.0); Mean Platelet Volume 10.7 fL (9.4-12.4); Monocytes Absolute Auto 0.7 X10*3/uL (0.1-1.2); Monocytes Percent Auto 8.7 % (2-11); Neutrophils Absolute Auto 4.9 x10*3/uL (2.0-8.3); Platelet Count 250 X10*3/uL (160-400); Red Blood Count 5.16 X10*6/uL (4.60-5.80); Red Cell Distribution Width 12.6 % (11.0-16.0); White Blood Count 7.9 X10*3/uL (4.8-10.8)
[2022-05-27 12:07] LABS: IDNOW Serial# 55D5AD1C
[2022-05-27 12:08] LABS: COVID-19 Test Negative (Negative)
[2022-05-27 12:10] LABS: Alanine Aminotransferase 19 U/L (0-40); Albumin Level 4.4 g/dL (3.5-5.0); Alkaline Phosphatase 92 U/L (39-117); Anion Gap 17 (12-20); Aspartate Amino Transferase 16 U/L (5-37); Bilirubin Direct 0.3 mg/dL (0.0-0.5); Blood Urea Nitrogen 11 mg/dL (9-16); Calcium 9.7 mg/dL (8.4-10.2); Carbon Dioxide 28 mmol/L (22-29); Chloride 89 mmol/L (96-108); Creatinine Clr Calc Pharmacy 73.3; Estimated Glomerular Filt Rate > 60; Glucose Random 750 mg/dL (60-115); Magnesium 1.7 mg/dL (1.6-2.6); Potassium 4.9 mmol/L (3.3-5.1); Sodium 129 mmol/L (135-145); Total Protein 7.5 g/dL (6.5-8.0)
[2022-05-27 12:14] LABS: Hemoglobin A1c % > 14.0 %
[2022-05-27] MEDS: 0.9 % Sodium Chloride 1,000 ML 999 ML IVCONT (12:42)
[2022-05-27 12:49] VITALS: BP 127/78; PULSE 97; RESP 19; TEMP 36.9; O2SAT 99
[2022-05-27] MEDS: Insulin Regular, Human 100 UNIT/ML 3 ML VIAL 6 UNIT IVPUSH ×2 (13:30→14:55)
[2022-05-27] MEDS: Fluorescein Sodium STRIP 1 STRIP EYE-RIGHT (13:31)
[2022-05-27] MEDS: Tetracaine HCl/PF 0.5% Oph Sol 4 ML DROPS 1 DROP EYE-RIGHT (13:32)
[2022-05-27 13:52] LABS: Appearance Urine Clear; Color Urine Yellow; Glucose Urine UA >=1000 mg/dL (Negative); Leukocyte Esterase Urine Negative (Negative); Nitrite Urine Negative (Negative); PH 6.5 (5.0-9.0); Specific Gravity - Urine >= 1.030 (1.005-1.025); UMIC TRIGGER UACC YES; Urine Blood Negative (Negative); Urine Ketones Negative (Negative); Urine Protein Negative (Neg-Trace)
[2022-05-27 13:52] LABS: Acetone, serum QL Negative (Negative)
[2022-05-27 14:08] LABS: Bacteria Urine None Seen (None Seen); Hyaline Casts Urine 0-2 /LPF (0-2); RBC Urine 0-2 /HPF (0-2); Squamous Epithelial Cell Urine 0-2 /HPF (0-2); WBC Urine 0-5 /HPF (0-5)
[2022-05-27 14:38] LABS: Glucose, Whole Blood 522 mg/dL (60-115)
--- NOTE | 2022-05-27 14:45 | PHA.MEDREC ---
Pharmacy Consult ? Medication Reconciliation Pharmacy has completed the medication reconciliation. Pt states no home meds
[2022-05-27] MEDS: 0.9 % Sodium Chloride 1,000 ML 999 ML IV (14:55)
[2022-05-27 16:21] LABS: Glucose, Whole Blood 328 mg/dL (60-115)
--- NOTE | 2022-05-27 17:29 | MHC.CM.ED ---
CM was asked to provide PCP resources for this patient with new onset diabetes diagnosis. [facility] [place] [facility] provider resource sheet given to patient with telephone numbers for Adult medicine and contact information for [facility]. Stressed importance of primary care visit. Pt encourage to call in the morning, as it is already 5pm and request new patient appointment with new diagnosis of Diabetes LARS. Pt then asked CM about diabetic diet and foods that are good/not good for diabetes. CM reviewed healthy plate/ foods to eat, portions, limiting pasta, breads, rice, cereal. Watching fruits, incorporating more veggies and salads. Thinking about diet daily, to plan food throughout the day. Limit soda and sugary drinks. Begin to change coffee intake, as patient uses 4 creamers/4 sugars per cup. Encouraged patient to google diabetic diet, healthy plate and portions. Explained that there is a lot of information online regarding diabetic diet control. Dr. Jolley in with patient to discuss his diabetes. CM will follow if any further D/C needs.
--- NOTE | 2022-05-27 17:34 | MHC.EDTECH ---
talked to the provider. Provider does not want EKG anymore. Patient is up for discharge.
[2022-05-27 17:36] LABS: Glucose, Whole Blood 321 mg/dL (60-115)
--- NOTE | 2022-05-27 18:24 | PM.EVENT ---
Event Note Date of Service: 06/04/22 Event Note: Pt was presented by ED provider for possible admission for new onset of diabetes with hyperglycemia. His sugar was 750, Bmp is within normal limits. He states that he hs been having polyuria and polydipsia for a better par of a year and just recently started having blury vision. In ED his was given IVF 2 liters and twelve units of insulin Bibab is 28, normal anion gap , sodium of 129 reflects pseudohypglycemia. He was offered diabetes education by ED provider, case management and myself. He was told that he will need close follow up for med adjustment with a PCP which he does not have, giving no acidosis his DM is likely of type 2 despite. He was given option of admission at least overnight for monitoring, and likely discharge in the morning with diabetes meds, pills or insulin, glucometer and other supplies. He prefers at this point to go home and his cousin who is a type 1 diabetic will assist hime with glucometer and blast furnace checker insulin. To that effect I discuss with ED provider that Metformin 500 bid or glipizide5 mg twice maybe use and that case manabement should help him establishe with a PCP within the week at [facility] and if sugar remains high to come back to ED and if sugar are low to consume juice and recheck, comomon symptoms of hypoglycemia sweaty, agitatio, axiety, confusion pointed out. Again was ofered to be admitted and opted to go nate, ED providerwas to provide meds and supplies. Time Spent With Patient Time: Total time managing care of this patient today _30___ minutes.
== END 2022-05-27 17:52 | disposition home or self-care (01) ==
PROVIDERS: Physician Assistant; Emergency Provider Emergency Medicine
DX: E11.65 Type 2 diabetes mellitus with hyperglycemia (principal); H53.8 Other visual disturbances; Z20.822 Contact with and (suspected) exposure to COVID-19
CPT/HCPCS: 36415; 80048; 80076; 81001; 82009; 82803; 82947; 83036; 83735; 85025; 87635; 96361; 96374; 96376; 99284

== ENCOUNTER 2022-06-20 18:45 | Emergency (ER) | payer MEDICAID, SELFPAY ==
--- NOTE | ~2022-06-20 | CT_ITS ---
EXAMINATION: CT head/brain wo IV con CLINICAL INFORMATION: Reason for Exam cant see out of either eye COMPARISON: None. TECHNIQUE: Contiguous axial imaging was performed from the skull base to vertex without intravenous contrast. Sagittal and coronal reformatted images were obtained. This CT examination was performed using dose optimization techniques as appropriate, variously including the following: * Automated exposure control * Adjustment of mA and/or kV according to patient size (this includes techniques or standardized protocols for targeted exams where dose is matched to indication/reason for exam; i.e. extremities or head) Use of iterative reconstruction technique DLP: 717 mGy-cm FINDINGS: No acute osseous or soft tissue abnormality. The mastoid air cells and visualized portions of the paranasal sinuses are well aerated. There is no evidence of acute intracranial hemorrhage or territorial infarction. No abnormal mass effect or midline shift is seen. Solitario to white matter differentiation is well preserved. No extra-axial fluid collections are identified. No hydrocephalus. CT/CT head/brain wo IV con IMPRESSION: 1. No acute intracranial abnormality.
[2022-06-20 18:59] VITALS: BP 124/77; PULSE 73; RESP 16; TEMP 36.5; O2SAT 100; BMI 23.1
--- NOTE | 2022-06-20 19:00 | ED.EYEPROB ---
HPI - Eye Problem General Chief complaint: Eye Problems <TATA Long - Last Filed: 06/20/22 19:29> Stated complaint: cant see out of either eye, cataracts, diabetic <TATA Long - Last Filed: 06/20/22 19:29> Time Seen by Provider: 06/20/22 21:22 <TATA Long - Last Filed: 06/20/22 19:29> Source: patient <Michael Hampton MD - Last Filed: 06/20/22 22:27> Mode of arrival: ambulatory <Michael Hampton MD - Last Filed: 06/20/22 22:27> Limitations: no limitations <Michael Hampton MD - Last Filed: 06/20/22 22:27> History of Present Illness HPI Narrative: Patient with history of diabetes bilateral juvenile cataract comes here from death clearance coordinator clinic as was referred to follow up with PCP or ER patient was recently diagnosed diabetes about 2 months there is decreased vision seen by death clearance coordinator 10 days ago refer to written specialist return special could not see , patient comes in frustration as does not know where to go now <Michael Hampton MD - Last Filed: 06/20/22 22:27> Related Data Home medications: Previous Rx's Medication Instructions Recorded blood sugar diagnostic (FreeStyle #100 ea 05/27/22 Lite Strips) blood-glucose meter (FreeStyle #1 ea 05/27/22 Lite Meter kit) glipizide 5 mg tablet 5 mg PO BID #120 tabs 05/27/22 lancets 28 gauge (FreeStyle #100 ea 05/27/22 Lancets) <TATA Long - Last Filed: 06/20/22 19:29> Allergies/adverse reactions: Allergies Allergy/AdvReac Type Severity Reaction Status Date / Time No Known Allergies Allergy Verified 06/20/22 19:04 <TATA Long - Last Filed: 06/20/22 19:29> Review of Systems Review of Systems: Yes all other systems are reviewed and are negative <Michael Hampton MD - Last Filed: 06/20/22 22:27> [facility] Social History Social History: Social History Alcohol intake: never Advance Directives: No Advance Directives Information Provided: No <TATA Long - Last Filed: 06/20/22 19:29> Physical Exam Vital Signs: Vital Signs: Last Vital Signs Temp 97.7 F 06/20/22 18:59 Pulse 74 06/20/22 21:10 Resp 18 06/20/22 21:10 BP 113/63 06/20/22 21:10 Pulse Ox 98 06/20/22 21:10 O2 Del Method Room Air 06/20/22 21:10 BMI result Body Mass Index 23.1 <TATA Long - Last Filed: 06/20/22 19:29> Vital Signs: Last Vital Signs Temp 97.7 F 06/20/22 18:59 Pulse 74 06/20/22 21:10 Resp 18 06/20/22 21:10 BP 113/63 06/20/22 21:10 Pulse Ox 98 06/20/22 21:10 O2 Del Method Room Air 06/20/22 21:10 BMI result Body Mass Index 23.1 <Michael Hampton MD - Last Filed: 06/20/22 22:27> Appearance: Alert. Oriented X3. No acute distress. Eyes: Dense cataract bilateral unable to see the fundus visual acuity to hand showed only ENT: Pharynx normal. Oral Mucosa moist Neck: Normal inspection. Neck supple. CVS: Normal heart rate and rhythm. Pulses normal. Respiratory: No respiratory distress. Equal air entry bilateral, Abdomen: Soft and nontender. Skin: Skin warm and dry. Normal skin color. Normal skin turgor. Extremities: No lower extremity edema. No calf tenderness Neuro: Oriented X 3. No motor deficit. No sensory deficit.No cerebellar signs , cranial nerves II-XII intact <Michael Hampton MD - Last Filed: 06/20/22 22:27> Course Course Course Narrative: This is an RME: Additional HPI, ROS, PE not included below will be deferred to primary provider. 26-year-old man hx of cataracts, and DMII presents to the emergency department with loss of vision to both eyes, according to girlfriend he went to the death clearance coordinator today and he was told that they were unable to see behind both eyes . He reports vision loss has been gradual and painless. Denies headaches, dizziness, fevers, chills. They tell me ophthalmology was concerned that he may be bleeding behind his eyes Physical exam deferred to primary provider as I do not have proper equipment to do an eye exam in triage Plan at this time visual acuity, CT head and brain CT scan. <TATA Long - Last Filed: 06/20/22 19:29> Reevaluation(s) Reevaluation #1: Spoke to Dr. Mann about this case patient never went to his office despite patient and patients girlfriend telling me. He recommends eye pressures and follow-up with outpatient ophthalmology. <TATA Long - Last Filed: 06/20/22 19:29> Time: 19:29 <TATA Long - Last Filed: 06/20/22 19:29> Medical Decision Making Medical Decision Making MDM Narrative: Patient with mature juvenile cataract advised to follow-up with death clearance coordinator for further management <Michael Hampton MD - Last Filed: 06/20/22 22:27> Lab Data Result Diagrams: 06/20/22 19:38 06/20/22 19:38 <TATA Long - Last Filed: 06/20/22 19:29> Labs: Lab Results 06/20/22 06/20/22 06/20/22 Range/Units 19:38 19:38 19:38 WBC 7.9 (4.8-10.8) X10*3/uL RBC 5.00 (4.60-5.80) X10*6/uL Hgb 14.7 (14.0-18.0) g/dl Hct 44.0 (42.0-52.0) % MCV 88.0 (80.0-98.0) fL MCH 29.4 (27.0-33.0) pg MCHC 33.4 (31.0-36.0) g/dl RDW 12.8 (11.0-16.0) % Plt Count 238 (160-400) X10*3/uL MPV 10.2 (9.4-12.4) fL Immature Gran % (Auto) 0.4 (0.0-0.4) % Neut % (Auto) 51.0 (45-73) % Lymph % (Auto) 33.7 (20-40) % [place] % (Auto) 10.3 (2-11) % Eos % (Auto) 4.1 H (0-4) % Baso % (Auto) 0.5 (0-2) % Lymph # (Auto) 2.7 (1.2-4.9) X10*3/uL [place] # (Auto) 0.8 (0.1-1.2) X10*3/uL Eos # (Auto) 0.3 (0.0-0.4) X10*3/uL Baso # (Auto) 0.0 (0.0-0.2) X10*3/uL Abs Immat Gran (auto) 0.03 (0.00-0.03) X10*3/uL Absolute Neuts (auto) 4.0 (2.0-8.3) x10*3/uL Absolute Nucleated RBC 0.000 (0.0-0.012) X10*3/uL Nucleated RBC % (auto) 0.0 (0.0-0.2) /100WBC PT (10.0-13.1) SEC INR (0.9-1.1) Sodium 138 (135-145) mmol/L Potassium 4.3 (3.3-5.1) mmol/L Chloride 102 (96-108) mmol/L Carbon Dioxide 28 (22-29) mmol/L Anion Gap 12 (12-20) BUN 16 (9-16) mg/dL Creatinine 0.88 (0.5-1.4) mg/dL Estim Creat Clear Calc 109.6 Estimated GFR > 60 Random Glucose 142 H (60-115) mg/dL Calcium 9.6 (8.4-10.2) mg/dL Magnesium 2.0 (1.6-2.6) mg/dL Total Bilirubin 0.6 (0.0-1.0) mg/dL AST 22 (5-37) U/L ALT 27 (0-40) U/L Alkaline Phosphatase 76 (39-117) U/L Total Protein 7.5 (6.5-8.0) g/dL Albumin 4.4 (3.5-5.0) g/dL COVID-19 (LIDA) Negative (Negative) COVID-19 Clin Com See Note 06/20/22 Range/Units 19:38 WBC (4.8-10.8) X10*3/uL RBC (4.60-5.80) X10*6/uL Hgb (14.0-18.0) g/dl Hct (42.0-52.0) % MCV (80.0-98.0) fL MCH (27.0-33.0) pg MCHC (31.0-36.0) g/dl RDW (11.0-16.0) % Plt Count (160-400) X10*3/uL MPV (9.4-12.4) fL Immature Gran % (Auto) (0.0-0.4) % Neut % (Auto) (45-73) % Lymph % (Auto) (20-40) % [place] % (Auto) (2-11) % Eos % (Auto) (0-4) % Baso % (Auto) (0-2) % Lymph # (Auto) (1.2-4.9) X10*3/uL [place] # (Auto) (0.1-1.2) X10*3/uL Eos # (Auto) (0.0-0.4) X10*3/uL Baso # (Auto) (0.0-0.2) X10*3/uL Abs Immat Gran (auto) (0.00-0.03) X10*3/uL Absolute Neuts (auto) (2.0-8.3) x10*3/uL Absolute Nucleated RBC (0.0-0.012) X10*3/uL Nucleated RBC % (auto) (0.0-0.2) /100WBC PT 11.1 (10.0-13.1) SEC INR 1.0 (0.9-1.1) Sodium (135-145) mmol/L Potassium (3.3-5.1) mmol/L Chloride (96-108) mmol/L Carbon Dioxide (22-29) mmol/L Anion Gap (12-20) BUN (9-16) mg/dL Creatinine (0.5-1.4) mg/dL Estim Creat Clear Calc Estimated GFR Random Glucose (60-115) mg/dL Calcium (8.4-10.2) mg/dL Magnesium (1.6-2.6) mg/dL Total Bilirubin (0.0-1.0) mg/dL AST (5-37) U/L ALT (0-40) U/L Alkaline Phosphatase (39-117) U/L Total Protein (6.5-8.0) g/dL Albumin (3.5-5.0) g/dL COVID-19 (LIDA) (Negative) COVID-19 Clin Com <TATA Long - Last Filed: 06/20/22 19:29> Lab Results 06/20/22 06/20/22 06/20/22 Range/Units 19:38 19:38 19:38 WBC 7.9 (4.8-10.8) X10*3/uL RBC 5.00 (4.60-5.80) X10*6/uL Hgb 14.7 (14.0-18.0) g/dl Hct 44.0 (42.0-52.0) % MCV 88.0 (80.0-98.0) fL MCH 29.4 (27.0-33.0) pg MCHC 33.4 (31.0-36.0) g/dl RDW 12.8 (11.0-16.0) % Plt Count 238 (160-400) X10*3/uL MPV 10.2 (9.4-12.4) fL Immature Gran % (Auto) 0.4 (0.0-0.4) % Neut % (Auto) 51.0 (45-73) % Lymph % (Auto) 33.7 (20-40) % [place] % (Auto) 10.3 (2-11) % Eos % (Auto) 4.1 H (0-4) % Baso % (Auto) 0.5 (0-2) % Lymph # (Auto) 2.7 (1.2-4.9) X10*3/uL [place] # (Auto) 0.8 (0.1-1.2) X10*3/uL Eos # (Auto) 0.3 (0.0-0.4) X10*3/uL Baso # (Auto) 0.0 (0.0-0.2) X10*3/uL Abs Immat Gran (auto) 0.03 (0.00-0.03) X10*3/uL Absolute Neuts (auto) 4.0 (2.0-8.3) x10*3/uL Absolute Nucleated RBC 0.000 (0.0-0.012) X10*3/uL Nucleated RBC % (auto) 0.0 (0.0-0.2) /100WBC PT (10.0-13.1) SEC INR (0.9-1.1) Sodium 138 (135-145) mmol/L Potassium 4.3 (3.3-5.1) mmol/L Chloride 102 (96-108) mmol/L Carbon Dioxide 28 (22-29) mmol/L Anion Gap 12 (12-20) BUN 16 (9-16) mg/dL Creatinine 0.88 (0.5-1.4) mg/dL Estim Creat Clear Calc 109.6 Estimated GFR > 60 Random Glucose 142 H (60-115) mg/dL Calcium 9.6 (8.4-10.2) mg/dL Magnesium 2.0 (1.6-2.6) mg/dL Total Bilirubin 0.6 (0.0-1.0) mg/dL AST 22 (5-37) U/L ALT 27 (0-40) U/L Alkaline Phosphatase 76 (39-117) U/L Total Protein 7.5 (6.5-8.0) g/dL Albumin 4.4 (3.5-5.0) g/dL COVID-19 (LIDA) Negative (Negative) COVID-19 Clin Com See Note 06/20/22 Range/Units 19:38 WBC (4.8-10.8) X10*3/uL RBC (4.60-5.80) X10*6/uL Hgb (14.0-18.0) g/dl Hct (42.0-52.0) % MCV (80.0-98.0) fL MCH (27.0-33.0) pg MCHC (31.0-36.0) g/dl RDW (11.0-16.0) % Plt Count (160-400) X10*3/uL MPV (9.4-12.4) fL Immature Gran % (Auto) (0.0-0.4) % Neut % (Auto) (45-73) % Lymph % (Auto) (20-40) % [place] % (Auto) (2-11) % Eos % (Auto) (0-4) % Baso % (Auto) (0-2) % Lymph # (Auto) (1.2-4.9) X10*3/uL [place] # (Auto) (0.1-1.2) X10*3/uL Eos # (Auto) (0.0-0.4) X10*3/uL Baso # (Auto) (0.0-0.2) X10*3/uL Abs Immat Gran (auto) (0.00-0.03) X10*3/uL Absolute Neuts (auto) (2.0-8.3) x10*3/uL Absolute Nucleated RBC (0.0-0.012) X10*3/uL Nucleated RBC % (auto) (0.0-0.2) /100WBC PT 11.1 (10.0-13.1) SEC INR 1.0 (0.9-1.1) Sodium (135-145) mmol/L Potassium (3.3-5.1) mmol/L Chloride (96-108) mmol/L Carbon Dioxide (22-29) mmol/L Anion Gap (12-20) BUN (9-16) mg/dL Creatinine (0.5-1.4) mg/dL Estim Creat Clear Calc Estimated GFR Random Glucose (60-115) mg/dL Calcium (8.4-10.2) mg/dL Magnesium (1.6-2.6) mg/dL Total Bilirubin (0.0-1.0) mg/dL AST (5-37) U/L ALT (0-40) U/L Alkaline Phosphatase (39-117) U/L Total Protein (6.5-8.0) g/dL Albumin (3.5-5.0) g/dL COVID-19 (LIDA) (Negative) COVID-19 Clin Com <Michael Hampton MD - Last Filed: 06/20/22 22:27> Discharge Plan Discharge Clinical Impression: Cataract <TATA Long - Last Filed: 06/20/22 19:29> Patient Disposition: Home, Self-Care <TATA Long - Last Filed: 06/20/22 19:29> Instructions: Cataracts (ED) <TATA Long - Last Filed: 06/20/22 19:29> Additional Instructions: Follow-up with Dr. Mann ophthalmology for further management <TATA Long - Last Filed: 06/20/22 19:29> Prescriptions: No Action glipizide 5 mg tablet 5 mg PO BID Qty: 120 0RF (DME) blood-glucose meter [FreeStyle Lite Meter] Kit See Rx Instructions .Route Qty: 1 0RF Rx Instructions: As directed (DME) FreeStyle Lite Strips Strip See Rx Instructions .Route Qty: 100 0RF Rx Instructions: As directed (DME) lancets [FreeStyle Lancets] 28 gauge misc See Rx Instructions .Route Qty: 100 0RF Rx Instructions: As directed <TATA Long - Last Filed: 06/20/22 19:29> Referrals: Juan R Mann [Physician] - 2 days <TATA Long - Last Filed: 06/20/22 19:29> Interventions: ED Discharge Assessment Last Done: 06/20/22 21:51 <TATA Long - Last Filed: 06/20/22 19:29> Discharge Date/Time: 06/20/22 21:52 <TATA Long - Last Filed: 06/20/22 19:29>
[2022-06-20 19:47] LABS: Basophils Percent Auto 0.5 % (0-2); Eosinophils Absolute Auto 0.3 X10*3/uL (0.0-0.4); Eosinophils Percent Auto 4.1 % (0-4); Hemoglobin 14.7 g/dl (14.0-18.0); Imm Gran Abs Auto 0.03 X10*3/uL (0.00-0.03); Imm Gran Pct Auto 0.4 % (0.0-0.4); Lymphocytes Absolute Auto 2.7 X10*3/uL (1.2-4.9); Lymphocytes Percent Auto 33.7 % (20-40); MANUAL DIFF FLAG NO; Mean Corpuscular HGB Conc 33.4 g/dl (31.0-36.0); Mean Corpuscular Hemoglobin 29.4 pg (27.0-33.0); Mean Platelet Volume 10.2 fL (9.4-12.4); Monocytes Absolute Auto 0.8 X10*3/uL (0.1-1.2); Monocytes Percent Auto 10.3 % (2-11); Platelet Count 238 X10*3/uL (160-400); Red Cell Distribution Width 12.8 % (11.0-16.0); White Blood Count 7.9 X10*3/uL (4.8-10.8)
[2022-06-20 19:55] LABS: Prothrombin Time 11.1 SEC (10.0-13.1)
[2022-06-20 20:02] LABS: COVID-19 Test Negative (Negative); IDNOW Serial# 08D9AD1C
[2022-06-20 20:06] LABS: Alanine Aminotransferase 27 U/L (0-40); Albumin Level 4.4 g/dL (3.5-5.0); Alkaline Phosphatase 76 U/L (39-117); Anion Gap 12 (12-20); Aspartate Amino Transferase 22 U/L (5-37); Bilirubin Total 0.6 mg/dL (0.0-1.0); Blood Urea Nitrogen 16 mg/dL (9-16); Calcium 9.6 mg/dL (8.4-10.2); Carbon Dioxide 28 mmol/L (22-29); Chloride 102 mmol/L (96-108); Creatinine Clr Calc Pharmacy 109.6; Estimated Glomerular Filt Rate > 60; Glucose Random 142 mg/dL (60-115); Potassium 4.3 mmol/L (3.3-5.1); Sodium 138 mmol/L (135-145); Total Protein 7.5 g/dL (6.5-8.0)
[2022-06-20 21:10] VITALS: BP 113/63; PULSE 74; RESP 18; O2SAT 98
== END 2022-06-20 21:52 | disposition home or self-care (01) ==
PROVIDERS: Physician Assistant; Emergency Provider Internal Medicine; PCP Nurse Practitioner Primary Care
DX: H26.9 Unspecified cataract (principal); R51.9 Headache, unspecified; Z20.822 Contact with and (suspected) exposure to COVID-19; Z20.828 Contact with and (suspected) exposure to other viral communicable diseases; Z79.899 Other long term (current) drug therapy
CPT/HCPCS: 36415; 70450; 80053; 83735; 85025; 85610; 87635; 99283; 99284

== ENCOUNTER 2022-07-29 10:01 | Day surgery (SDC) | payer MEDICAID, SELFPAY ==
[2022-07-24 15:26] VITALS: BMI 24.5
--- NOTE | 2022-07-26 08:56 | MHC.SHP ---
Pre-Procedural Eval Section A Date of Service: 07/26/22 The patient is an INPATIENT: No Changes since office visit: No Cold of Flu in the past 2 weeks, No New Medical Problems, No Changes in Medication and No Patient answered all questions The History & Physical has been completed within 30 days and I have reviewed it.: Yes Section B Chief Complaint: Age-related nuclear cataract, right eye Allergies: Allergies Allergy/AdvReac Type Severity Reaction Status Date / Time No Known Allergies Allergy Verified 07/24/22 15:25 Plan Diagnosis/Plan: Unchanged I have reviewed the history and physical and performed a pertinent physical examination on my patient. No changes have occurred unless specified. Time Spent With Patient Time: Total time managing care of this patient today ____ minutes.
[2022-07-29 12:11] VITALS: BP 114/86; PULSE 85; RESP 18; TEMP 36.6; O2SAT 99
--- NOTE | 2022-07-29 12:21 | P.CONAN_ITS ---
[facility] Past Medical History Medical History Diabetes Functional capacity: bed bound Surgical History Surgical History History of myringotomy History of Problems with Anesthesia: No Social History Social History Are you a primary personal care aide to a significant other at home: No Do you presently have visiting nurse or other home services: No Alcohol intake: never Patient Tobacco Use Status: Never used Tobacco Use of substances other than those prescribed or required for medical reasons: No Have you been hit, kicked, punched, or otherwise hurt by someone within the past year? If so, by whom?: No Are you DNR?: No Advance Directives: No Advance Directives Information Provided: Yes Advance Directives on File: No Recently lost weight without trying: No Nutrition Risks: No Nutritional Risk Poor oral hygiene: No Meds Allergies Allergy/AdvReac Type Severity Reaction Status Date / Time No Known Allergies Allergy Verified 07/24/22 15:25 Active Medications: Current Medications Cyclopentolate HCl (Cyclopentolate 1 % Ophth Kalyani 2 Ml Drpbtl) 1 drop EYE-RIGHT Q5M CHRISTIN Stop: 07/29/22 12:26 Lactated Ringer's (Lr) 500 mls @ 50 mls/hr IV .Q10H CHRISTIN Stop: 07/29/22 22:14 Ketorolac Tromethamine (Ketorolac Tromethamine 0.5% Op 5 Ml Drops) 1 drop EYE- RIGHT Q5M CHRISTIN Stop: 07/29/22 12:26 Phenylephrine HCl (Phenylephrine Hcl 2.5% Oph Kalyani 2 Ml Bottle) 1 drop EYE-RIGHT Q5M CHRISTIN Stop: 07/29/22 12:26 Povidone Iodine (Povidone Iodine 5 % Ophth Soln 30 Ml Bottle) 1 appl EYE-RIGHT PREOP PRN PRN Reason: Pre-Op Surgical Implant Prophy Tropicamide (Tropicamide 1 % Ophth Kalyani 3 Ml Btl) 1 drop EYE-RIGHT Q5M CHRISTIN Stop: 07/29/22 12:26 Home Medications Medication Instructions Recorded Confirmed Last Taken Type dulaglutide 0.75 mg/0.5 mL 0.75 mg subcut QWEEK 07/24/22 07/24/22 Unknown History subcutaneous pen injector (Trulicity) Exam Exam Date and Time: July 29, 2022 1221 Height,Weight and Vital Signs: Height 5 ft 5 in Weight 66.678 kg Last Vital Signs Temp 97.9 F 07/29/22 12:11 Pulse 85 07/29/22 12:11 Resp 18 07/29/22 12:11 BP 114/86 07/29/22 12:11 Pulse Ox 99 07/29/22 12:11 O2 Del Method Room Air 07/29/22 12:11 Airway Mallampati Class: II TM Dist: >3cm Neck ROM: Full Loose/Missing/Broken Teeth: No Heart: RRR Lungs: CTA Assessment and Plan Assessment Anesthesia Assessment: Anesthesia Plan Discussed and Chart Reviewed Final Anesthetic Review History of Problems with Anesthesia: No NPO: Yes ASA Class: II Final Preanesthetic Review: Meds/Allgs Chart Reviewed, Consent Obtained/Reviewed and Anes Risks/Benef Reviewed Patient Risk: Low Procedure Risk: Low Anesthetic Plan Anesthetic Plan: MAC: Disposition: Standard PACU
[2022-07-29 12:23] LABS: Glucose, Whole Blood 90 mg/dL (60-115)
[2022-07-29] MEDS: Phenylephrine HCL 2.5% Oph SoL 2 ML BOTTLE 1 DROP EYE-RIGHT ×3 (12:32→12:37)
[2022-07-29] MEDS: Tetracaine HCl/PF 0.5% Oph Sol 4 ML DROPS 1 DROP EYE-RIGHT (12:32)
[2022-07-29] MEDS: Cyclopentolate 1 % Ophth Sol 2 ML DRPBTL 1 DROP EYE-RIGHT ×3 (12:33→12:37)
[2022-07-29] MEDS: Ketorolac Tromethamine 0.5% Op 5 ML DROPS 1 DROP EYE-RIGHT ×3 (12:33→12:37)
[2022-07-29] MEDS: Tropicamide 1 % Ophth Sol 3 ML BTL 1 DROP EYE-RIGHT ×3 (12:33→12:37)
[2022-07-29] MEDS: Lactated Ringers 500 ML 50 ML IV (12:57)
--- NOTE | 2022-07-29 13:34 | P.PCNO_ITS ---
Ophthalmology Procedure Procedure Date of Service: 07/29/22 Ophthalmology Viscoelastic: Russ Nelson Dual Pack Pro Ophthalmology Lenses: TECZI [id number] (20) Procedure Notes: PREOPERATIVE DIAGNOSIS: Decreased visual acuity right eye secondary to cataract POSTOPERATIVE DIAGNOSIS: Same PROCEDURE: Right cataract extraction with intraocular lens insertion SURGEON: Juan R Mann M.D. ANESTHESIA: Topical/MAC ESTIMATED BLOOD LOSS: None COMPLICATIONS: Capsular tear After obtaining informed consent, the patient was brought to the operating room suite and placed in the supine position. After adequate sedation per anesthesia, topical drops of Tetracaine were given to the right eye. The eye was then prepped and draped in the usual sterile fashion. The operating room microscope was then positioned over the operative eye and a lid speculum placed. A paracentesis was created. An air bubble was placed followed by visionblue.Viscoelastic was then instilled into the anterior chamber. A three plane incision was then created temporally, utilizing a 2.85 mm keratome. Capsulotomy forceps were then utilized to create a circular tear capsulotomy. The capsule tore radially and I couln't redirect the tear. I switched to a can-vice president of brand management style capulotomy.Hydrodissection and hydrodelineation were carried out until adequate mobilization of the nucleus occurred. Phacoemulsification was then utilized to remove the dense central nucleus followed by removal of the cortical material utilizing the automated aspiration irrigation unit. Viscoelastic was instilled into the posterior capsular bag followed by placement of a posterior chamber intraocular lens without difficulty. The residual Viscoelastic was then removed utilizing the automated IA machine. The wound was checked and found to be watertight. The patient tolerated the procedure well and the lid speculum was removed. Intracameral injection of Vigamox 0.1 mL followed by a subtenon injection of Kenalog-40 0.2 mL were administered. The patient will be seen in the a.m.
[2022-07-29 14:09] VITALS: BP 115/75; PULSE 95; RESP 18; TEMP 36.3; O2SAT 98
== END 2022-07-29 14:12 | disposition home or self-care (01) ==
PROVIDERS: PCP Nurse Practitioner Primary Care; Visit Provider Ophthalmology
PROC: (CPT 66985; principal; 2022-07-29 13:30)
DX: H25.11 Age-related nuclear cataract, right eye (principal); H59.211 Accidental puncture and laceration of right eye and adnexa during an ophthalmic procedure; Y77.8 Miscellaneous ophthalmic devices associated with adverse incidents, not elsewhere classified; E11.9 Type 2 diabetes mellitus without complications; Z79.85 Long-term (current) use of injectable non-insulin antidiabetic drugs; Z79.84 Long term (current) use of oral hypoglycemic drugs
CPT/HCPCS: 66984; 82947; J2250; J3010; J3301; V2632

== ENCOUNTER 2022-08-12 06:01 | Day surgery (SDC) | payer MEDICAID, SELFPAY ==
[2022-07-24 15:28] VITALS: BMI 24.5
--- NOTE | 2022-08-09 08:13 | MHC.SHP ---
Pre-Procedural Eval Section A Date of Service: 08/09/22 The patient is an INPATIENT: No Changes since office visit: No Cold of Flu in the past 2 weeks, No New Medical Problems, No Changes in Medication and No Patient answered all questions The History & Physical has been completed within 30 days and I have reviewed it.: Yes Section B Chief Complaint: Age-related nuclear cataract, left eye Allergies: Allergies Allergy/AdvReac Type Severity Reaction Status Date / Time No Known Allergies Allergy Verified 07/24/22 15:25 Plan Diagnosis/Plan: Unchanged I have reviewed the history and physical and performed a pertinent physical examination on my patient. No changes have occurred unless specified. Time Spent With Patient Time: Total time managing care of this patient today ____ minutes.
--- NOTE | 2022-08-09 09:24 | P.CONAN_ITS ---
Documented by User: Linda Nolasco NP 08/09/22 09:25 HPI - Anesthesia Eval Consult details Narrative: 27yo M for Cataract Extraction IOL Insertion PCP cleared 1st eye 07/29/22 with Darrell [facility], Midaz 1 [facility] Past Medical History Medical History Diabetes Surgical History Surgical History History of myringotomy History of Problems with Anesthesia: No Social History Social History Are you a primary respiratory care assistant to a significant other at home: No Do you presently have visiting nurse or other home services: No Alcohol intake: never Patient Tobacco Use Status: Never used Tobacco Use of substances other than those prescribed or required for medical reasons: No Have you been hit, kicked, punched, or otherwise hurt by someone within the past year? If so, by whom?: No Are you DNR?: No Advance Directives: No Advance Directives Information Provided: Yes Advance Directives on File: No Recently lost weight without trying: No Nutrition Risks: No Nutritional Risk Poor oral hygiene: No Meds Allergies Allergy/AdvReac Type Severity Reaction Status Date / Time No Known Allergies Allergy Verified 07/24/22 15:25 Home Medications Medication Instructions Recorded Confirmed Last Taken Type dulaglutide 0.75 mg/0.5 mL 0.75 mg subcut QWEEK 07/24/22 07/24/22 Unknown History subcutaneous pen injector (Trulicity) Exam Exam Date and Time: August 09, 2022 0924 Height,Weight and Vital Signs: Height 5 ft 5 in Weight 66.678 kg Assessment and Plan Assessment Anesthesia Assessment: Chart Reviewed Final Anesthetic Review History of Problems with Anesthesia: No Documented by User: Elizabeth Jarrell MD 08/12/22 08:23 [facility] Past Medical History Medical History Diabetes Family History Family history of problems with anesthesia: No Surgical History Surgical History History of myringotomy Social History Social History Are you a primary respiratory care assistant to a significant other at home: No Do you presently have visiting nurse or other home services: No Alcohol intake: never Patient Tobacco Use Status: Never used Tobacco Use of substances other than those prescribed or required for medical reasons: No Have you been hit, kicked, punched, or otherwise hurt by someone within the past year? If so, by whom?: No Are you DNR?: No Advance Directives: No Advance Directives Information Provided: Yes Advance Directives on File: No Recently lost weight without trying: No Nutrition Risks: No Nutritional Risk Poor oral hygiene: No Meds Allergies Allergy/AdvReac Type Severity Reaction Status Date / Time No Known Allergies Allergy Verified 07/24/22 15:25 Home Medications Medication Instructions Recorded Confirmed Last Taken Type dulaglutide 0.75 mg/0.5 mL 0.75 mg subcut QWEEK 07/24/22 07/24/22 Unknown Hi story subcutaneous pen injector (Trulicity) Exam Airway Mallampati Class: II TM Dist: >3cm Neck ROM: Full Heart: rrr Lungs: cta Assessment and Plan Assessment Anesthesia Assessment: Anesthesia Plan Discussed Final Anesthetic Review Family History of Problems with Anesthesia: No NPO: Yes ASA Class: III Final Preanesthetic Review: No Changes in Pt Med Stat, Meds/Allgs Chart Reviewed, Consent Obtained/Reviewed and Anes Risks/Benef Reviewed Patient Risk: Low Procedure Risk: Low Anesthetic Plan Anesthetic Plan: MAC: Disposition: Standard PACU
[2022-08-12 06:15] VITALS: BP 108/71; PULSE 92; RESP 16; TEMP 36.9; O2SAT 99
--- NOTE | 2022-08-12 06:21 | PC.NURSE ---
poc 143 patients own sensor
[2022-08-12] MEDS: Tetracaine HCl/PF 0.5% Oph Sol 4 ML DROPS 1 DROP EYE-LEFT (06:22)
[2022-08-12] MEDS: Cyclopentolate 1 % Ophth Sol 2 ML DRPBTL 1 DROP EYE-LEFT ×3 (06:22→06:35)
[2022-08-12] MEDS: Tropicamide 1 % Ophth Sol 3 ML BTL 1 DROP EYE-LEFT ×3 (06:24→06:36)
[2022-08-12] MEDS: Ketorolac Tromethamine 0.5% Op 5 ML DROPS 1 DROP EYE-LEFT ×3 (06:26→06:37)
[2022-08-12] MEDS: Phenylephrine HCL 2.5% Oph SoL 2 ML BOTTLE 1 DROP EYE-LEFT ×3 (06:28→06:38)
[2022-08-12] MEDS: Lactated Ringers 500 ML 50 ML IV (06:40)
--- NOTE | 2022-08-12 08:28 | HO.PNOPHT ---
Ophthalmology Procedure Procedure Date of Service: 08/12/22 Ophthalmology Viscoelastic: Healhector Nguyent Dual Pack Pro Ophthalmology Lenses: TECZI [id number] (21) Procedure Notes: PREOPERATIVE DIAGNOSIS: Decreased visual acuity left eye secondary to cataract POSTOPERATIVE DIAGNOSIS: Same PROCEDURE: Left cataract extraction with intraocular lens insertion with vision blue SURGEON: Juan R Mann M.D. ANESTHESIA: Topical/MAC ESTIMATED BLOOD LOSS: None COMPLICATIONS: None After obtaining informed consent, the patient was brought to the operation room suite and placed in the supine position. After adequate sedation per anesthesia, topical drops of Tetracaine were given to the left eye. The eye was then prepped and draped in the usual sterile fashion. The operating room microscope was then positioned over the operative eye and a lid speculum placed. A paracentesis was created. Air was intoduced into the anterior chamber followed by Visionblue. Viscoelastic was then instilled into the anterior chamber. A three plane incision was then created temporally, utilizing a 2.85 mm keratome. Capsulotomy forceps were then utilized to create a circular tear capsulotomy. Hydrodissection and hydrodelineation were carried out until adequate mobilization of the nucleus occurred. Phacoemulsification was then utilized to remove the dense central nucleus followed by removal of the cortical material utilizing the automated aspiration irrigation unit. Viscoat elastic was instilled into the posterior capsular bag followed by placement of a posterior chamber intraocular lens without difficulty. The residual Viscoat elastic was then removed utilizing the automated IA machine. The wound was check and found to be watertight. The patient tolerated the procedure well and the lid speculum was removed. Intracameral injection of Vigamox 0.1 mL followed by a subtenon injection of Kenalog-40 0.2 mL were administered. The patient will be seen in the a.m.
[2022-08-12 08:52] VITALS: BP 118/87; PULSE 95; RESP 18; TEMP 37; O2SAT 97
== END 2022-08-12 09:00 | disposition home or self-care (01) ==
PROVIDERS: PCP Nurse Practitioner Primary Care; Visit Provider Ophthalmology
PROC: (CPT 66985; principal; 2022-08-12 08:50)
DX: H25.12 Age-related nuclear cataract, left eye (principal); H54.7 Unspecified visual loss; E11.9 Type 2 diabetes mellitus without complications; Z79.85 Long-term (current) use of injectable non-insulin antidiabetic drugs; Z79.84 Long term (current) use of oral hypoglycemic drugs; L30.9 Dermatitis, unspecified
CPT/HCPCS: 66984; J2250; J3010; J3301; V2632